=== PATIENT | female | born 1955 | race Caucasian/White ===

== ENCOUNTER → 2016-09-06 | Outpatient (CLI) | payer BC ==
--- NOTE | 2016-09-07 10:21 | MM ---
Reason for exam: screening (asymptomatic). Last mammogram was performed 1 year and 1 month ago. History: Patient is postmenopausal and history of other cancer. Benign mammotome biopsy removal of the right breast, August 25, 2003. Benign mammotome biopsy removal of the left breast, August 18, 2003. Took hormonal contraceptives for 3 years beginning at age 20. Physical Findings: A clinical breast exam by your physician is recommended on an annual basis and results should be correlated with mammographic findings. MG Screening Mammo w CAD Bilateral CC and MLO view(s) were taken. Prior study comparison: August 20, 2015, left breast MG work up mamm w CAD LT. August 17, 2015, bilateral MG screening mammo w CAD. The breast tissue is heterogeneously dense. This may lower the sensitivity of mammography. Benign calcifications. There is no discrete abnormality. No significant changes when compared with prior studies. ASSESSMENT: Benign, BI-RAD 2 RECOMMENDATION: Routine screening mammogram of both breasts in 1 year.
== END | disposition home or self-care (01) ==
LOC: RADMAMWWP 08:32
PROVIDERS: ATTEND Internal Medicine
DX: Z12.31 Encounter for screening mammogram for malignant neoplasm of breast (principal)

== ENCOUNTER → 2017-09-17 | Outpatient (CLI) | payer BC ==
--- NOTE | 2017-09-17 15:38 | CTL ---
EXAMINATION TYPE: CT Low Dose Lung DATE OF EXAM ORDERED: 09/17/2017 COMPARISON: None HISTORY: . Low Dose CT Lung Screening CT DLP: 66.[address] CTDI: 1.9 mGy IV CONTRAST USED: None. SCREENING VISIT: First visit COMPARISON: None. TECHNIQUE: Low dose computed tomography scan was performed through the chest at 1 millimeter thick se ctions and reconstructed images in the coronal plane at [address] DIAGNOSTIC QUALITY: Satisfactory FINDINGS: LUNG NODULES: Right lun.2mm pulmonary nodule superior segment right lower lobe image 165. No additional distinc t pulmonary nodules identified within the right or left lung at this time. LUNGS: COPD: Severity: None Fibrosis: Severity:None Lymph nodes: None Other findings: None RIGHT PLEURAL SPACE: Effusion: None Calcification: None Thickening: None Pneumothorax: None LEFT PLEURAL SPACE: Effusion: None Calcification: None Thickening: None Pneumothorax: None HEART: Heart Size: Mildly enlarged Coronary calcification: Mild Pericardial effusion: None OTHER FINDINGS: Upper abdomen: No significant abnormality Bony thorax: Degenerative changes Supraclavicular region: No significant abnormalityOther: No significant abnormalityI IMPRESSION: Probably benign category [address] CHEST RECOMMENDATION: 6 month follow-up LDCT CT LUNG RAD: LUNG RAD CATEGORY category 3
== END | disposition home or self-care (01) ==
LOC: RADCTMAIN 15:06
PROVIDERS: ATTEND Internal Medicine
DX: Z12.2 Encounter for screening for malignant neoplasm of respiratory organs (principal); Z87.891 Personal history of nicotine dependence

== ENCOUNTER → 2017-10-09 | Outpatient (CLI) | payer BC ==
--- NOTE | 2017-10-10 09:30 | MM ---
Reason for exam: screening (asymptomatic). Last mammogram was performed 1 year and 1 month ago. History: Patient is postmenopausal and history of other cancer. Benign mammotome biopsy removal of the right breast, August 25, 2003. Benign mammotome biopsy removal of the left breast, August 18, 2003. Took hormonal contraceptives for 3 years beginning at age 20. Physical Findings: A clinical breast exam by your physician is recommended on an annual basis and results should be correlated with mammographic findings. MG Screening Mammo w CAD Bilateral CC and MLO view(s) were taken. Prior study comparison: September 06, 2016, bilateral MG screening mammo w CAD. August 20, 2015, left breast MG work up mamm w CAD LT. The breast tissue is heterogeneously dense. This may lower the sensitivity of mammography. Stable benign calcifications. No significant changes when compared with prior studies. ASSESSMENT: Benign, BI-RAD 2 RECOMMENDATION: Routine screening mammogram of both breasts in 1 year.
== END | disposition home or self-care (01) ==
LOC: RADMAMWWP 08:12
PROVIDERS: ATTEND Internal Medicine
DX: Z12.31 Encounter for screening mammogram for malignant neoplasm of breast (principal)
CPT/HCPCS: 77067

== ENCOUNTER → 2018-04-02 | Outpatient (CLI) | payer BC ==
--- NOTE | 2018-04-02 09:55 | CT ---
EXAMINATION TYPE: CT chest w con DATE OF EXAM: 04/02/2018 COMPARISON: 09/17/2017 HISTORY: 62-year-old female personal history of tobacco use, Mass TECHNIQUE: Contiguous axial scanning of the chest after the administration of 100 mL of Isovue 300. Coronal/sagittal reconstructions performed. CT DLP: 182.8mGycm. Automatic exposure control utilized for a dose reduction. FINDINGS: Heart normal size without pericardial effusion. Coronary vessel calcifications are present in remarka ble for coronary artery disease. Aorta normal caliber with mild atherosclerotic arch calcifications and conventional arch vessel branc alexander anatomy. No thoracic lymphadenopathy by CT size criteria. Suggestion of mild underlying centrilobular emphysema in the upper lungs. 6 mm posterior right lower lobe pulmonary nodule, axial image 36 remain stable for 6 months. 4 mm inferior lingular pulmonary nodule stable for 6 months. Some strandy inferior lingular atelectasis or scarring is noted. No consolidation or pleural effusion . Visualized upper abdomen shows an inferior splenule. Bones: Degenerative changes at the shoulders and endplate spondylosis with multilevel degenerative di sc disease throughout. IMPRESSION: 1. 6 mm right lower lobe pulmonary nodule and 4 mm inferior lingular pulmonary nodules are stable for 6 months. This would qualify as LungRADS Category 2 (benign appearance, <1% chance of malignancy). P atient can return to annual low-dose lung cancer screening CT. 2. COPD with mild emphysema. CAD.
== END | disposition home or self-care (01) ==
LOC: RADCTMAIN 08:48
PROVIDERS: ATTEND Internal Medicine
DX: J43.9 Emphysema, unspecified (principal); R91.1 Solitary pulmonary nodule; I25.10 Atherosclerotic heart disease of native coronary artery without angina pectoris
CPT/HCPCS: 71260; Q9967

== ENCOUNTER → 2018-11-04 | Outpatient (CLI) | payer BC ==
--- NOTE | 2018-11-05 13:52 | MM ---
Reason for exam: screening (asymptomatic). Last mammogram was performed 1 year and 1 month ago. History: Patient is postmenopausal and history of other cancer. Benign mammotome biopsy removal of the right breast, August 25, 2003. Benign mammotome biopsy removal of the left breast, August 18, 2003. Took hormonal contraceptives for 3 years beginning at age 20. Physical Findings: A clinical breast exam by your physician is recommended on an annual basis and results should be correlated with mammographic findings. MG Screening Mammo w CAD Bilateral CC and MLO view(s) were taken. Prior study comparison: October 09, 2017, bilateral MG screening mammo w CAD. September 06, 2016, bilateral MG screening mammo w CAD. The breast tissue is heterogeneously dense. This may lower the sensitivity of mammography. Benign appearing bilateral calcifications. No suspicious abnormality. Right biopsy marker noted. No significant changes when compared with prior studies. ASSESSMENT: Benign, BI-RAD 2 RECOMMENDATION: Routine screening mammogram of both breasts in 1 year.
== END | disposition home or self-care (01) ==
LOC: RADMAMWWP 08:26
PROVIDERS: ATTEND Internal Medicine
DX: Z12.31 Encounter for screening mammogram for malignant neoplasm of breast (principal)
CPT/HCPCS: 77067

== ENCOUNTER → 2019-01-08 | Outpatient (CLI) | payer BC ==
--- NOTE | 2019-01-08 11:12 | US ---
EXAMINATION TYPE: US carotid duplex BILAT DATE OF EXAM: 01/08/2019 COMPARISON: Previous abnormal x-ray is unavailable for correlation at the time of performance of the exam. CLINICAL HISTORY: R93.17 ABN XRAY SPINE. Pt states abnormal xray at outside facility EXAM MEASUREMENTS: RIGHT: Peak Systolic Velocity (PSV) cm/sec ----- Right CCA: 70.3 ----- Right ICA: 89.7 ----- Right ECA: 88.6 ICA/CCA ratio: 1.3 RIGHT: End Diastole cm/sec ----- Right CCA: 18.0 ----- Right ICA: 34.7 ----- Right ECA: 19.3 LEFT: Peak Systolic Velocity (PSV) cm/sec ----- Left CCA: 88.6 ----- Left ICA: 96.5 ----- Left ECA: 105.6 ICA/CCA ratio: 1.1 LEFT: End Diastole cm/sec ----- Left CCA: 22.3 ----- Left ICA: 46.1 ----- Left ECA: 20.2 VERTEBRALS (direction of flow): Right Vertebral: Antegrade Left Vertebral: Antegrade Rhythm: Normal Grayscale, color Doppler, spectral Doppler imaging performed. Waveform analysis does not show signifi cant stenosis of the internal carotid arteries. No significant stenosis seen Incidental finding right thyroid nodule= 1.0 cm IMPRESSION: No hemodynamic significant stenosis of the proximal internal carotid arteries by Doppler criteria, an indirect measurement of carotid stenosis
== END ==
LOC: RADUSWWP 10:25
PROVIDERS: ATTEND Internal Medicine
DX: R93.89 Abnormal findings on diagnostic imaging of other specified body structures (principal)
CPT/HCPCS: 93880

== ENCOUNTER → 2019-01-15 | Outpatient (CLI) | payer BC ==
--- NOTE | 2019-01-15 15:59 | US ---
EXAMINATION TYPE: US thyroid st tissue head/neck DATE OF EXAM: 01/15/2019 COMPARISON: NONE CLINICAL HISTORY: R22.1 Swelling Mass Lump on neck. GLAND SIZE: Right Lobe: 3.9 x 1.4 x 1.1 cm Overall Parenchyma: heterogenous Left Lobe: 4.4 x 0.9 x 1.2 cm Overall Parenchyma: heterogeneous Isthmus Thickness: 0.3 cm NODULES RIGHT: # of nodules measured on right: 1. 1.1 X 0.6 x 1.0 cm hypoechoic solid nodule at the upper pole with well-defined margins. This no dule is wider than tall and shows intranodular vascularity. 2. 0.6 X 0.6 x 0.6 cm isoechoic mixed nodule at the lower pole with well-defined margins. This nodu le is taller than wide and shows intranodular vascularity. 3. 0.6 X 0.5 x 0.5 cm isoechoic solid nodule at the lower pole with well-defined margins. This nodu le is wider than tall and shows intranodular vascularity. LEFT: # of nodules measured on left: 2 1. 0.7 X 0.4 x 0.6 cm hypoechoic solid nodule at the upper pole with well-defined margins. This no dule is wider than tall and shows intranodular vascularity. 2. 0.8 X 0.6 x 0.8 cm hypoechoic solid nodule at the lower pole with well-defined margins. This nod ule is wider than tall and shows intranodular vascularity. ISTHMUS: # of nodules measured in the isthmus: 0 Bilateral neck scanned, no evidence of lymphadenopathy. IMPRESSION: Nonspecific thyroid nodularity.
== END | disposition home or self-care (01) ==
LOC: RADUSWWP 14:08
PROVIDERS: ATTEND Internal Medicine
DX: E04.2 Nontoxic multinodular goiter (principal)
CPT/HCPCS: 76536

== ENCOUNTER → 2019-09-10 | Outpatient (CLI) | payer BC ==
[2019-09-10 09:46] LABS: Basophils # (A) 0.1 k/uL (0-0.2); Basophils % (A) 1 %; Eosinophils # (A) 0.2 k/uL (0-0.7); Eosinophils % (A) 4 %; HCT 43.5 % (34.0-46.0); HGB 14.6 gm/dL (11.4-16.0); Lymphocytes # (A) 1.2 k/uL (1.0-4.8); Lymphocytes % (A) 18 %; MCH 34.6 pg (25.0-35.0); MCHC 33.5 g/dL (31.0-37.0); MCV 103.2 fL (80.0-100.0); Macrocytosis Slight; Mean Platelet Volume 7.5; Monocytes # (A) 0.3 k/uL (0-1.0); Monocytes % (A) 5 %; Neutrophils # (A) 4.5 k/uL (1.3-7.7); Neutrophils % (A) 70 %; Platelet Count 280 k/uL (150-450); RBC 4.21 m/uL (3.80-5.40); RDW 11.8 % (11.5-15.5); WBC 6.4 k/uL (3.8-10.6)
[2019-09-10 16:27] LABS: African American GFR (CKD) 108.4 (60.0-200.0); Albumin 4.6 g/dL (3.80-4.90); Albumin/Globulin Ratio 2.19 (1.60-3.17); Anion Gap 8.7 mmol/L (4.00-12.00); BUN/Creat Ratio 12.86 Ratio (12.00-20.00); Calcium 10.1 mg/dL (8.7-10.3); Carbon Dioxide 28.3 mmol/L (21.6-31.8); Chol/HDL Ratio 1.71; Globulin 2.1 g/dL (1.6-3.3); LDL Cholesterol,Calculated 66.6 mg/dL (0.0-131.0); Non-African American GFR(CKD) 93.5 (60.0-200.0); Total Bilirubin 0.9 mg/dL (0.2-1.2); Total Protein 6.7 g/dL (6.2-8.2); VLDL Calculation 10.4 mg/dL (5.00-40.00)
== END | disposition home or self-care (01) ==
LOC: LABWHC1 08:27
PROVIDERS: ATTEND Internal Medicine
DX: I10 Essential (primary) hypertension (principal); E78.2 Mixed hyperlipidemia; E55.9 Vitamin D deficiency, unspecified; E03.9 Hypothyroidism, unspecified
CPT/HCPCS: 36415; 80053; 80061; 82306; 84443; 85025

== ENCOUNTER → 2019-10-09 | Outpatient (CLI) | payer BC ==
--- NOTE | 2019-10-09 15:30 | CTL ---
EXAMINATION TYPE: CT Low Dose Lung DATE OF EXAM ORDERED: 10/09/2019 HISTORY: Long-term tobacco use. Lung cancer screening CT DLP: 60.[address] CTDI: 1.9 mGy Automated exposure control for dose reduction was used. SCREENING VISIT: First after baseline COMPARISON: Baseline study September 17, 2017 TECHNIQUE: Low dose computed tomography scan was performed through the chest at 1 mm thick sections a nd reconstructed images in the coronal plane at [address] DIAGNOSTIC QUALITY: Satisfactory FINDINGS: LUNG NODULES: Present, detailed below: Stable 6 x 5 mm right lower lobe nodule axial image 162. There is 5 x 4 mm subpleural nodule right lower lobe axial image 177 in retrospect stable LUNGS: COPD: Severity: Minimal Fibrosis: Severity: Mild to moderate bibasilar Lymph nodes: No definitive greater than 1 cm Other findings: None BILATERAL PLEURAL SPACE: Effusion: None Calcification: None Thickening: None Pneumothorax: None HEART: Heart Size: Normal Coronary calcification: Moderate Pericardial effusion: None OTHER FINDINGS: Upper abdomen: Diffuse fatty infiltration of liver Bony thorax: Scoliosis with moderate to severe multilevel spurring redemonstrated. Supraclavicular region: None Other: Persistent surgical clips lateral right breast image 15. IMPRESSION: No new or enlarging nodules. FOLLOW UP CT CHEST RECOMMENDATION: Annual low-dose lung screening CT CT LUNG RAD: Lung-Rad 2 Benign Appearance or Behavior
== END | disposition home or self-care (01) ==
LOC: RADCTMAIN 14:51
PROVIDERS: ATTEND Internal Medicine
DX: Z12.2 Encounter for screening for malignant neoplasm of respiratory organs (principal); Z87.891 Personal history of nicotine dependence

== ENCOUNTER → 2020-01-01 | Outpatient (CLI) | payer BC ==
--- NOTE | 2020-01-05 09:11 | MM ---
Reason for exam: screening (asymptomatic). Last mammogram was performed 1 year and 2 months ago. History: Patient is postmenopausal and history of other cancer. Benign mammotome biopsy removal of the right breast, August 25, 2003. Benign mammotome biopsy removal of the left breast, August 18, 2003. Took hormonal contraceptives for 3 years beginning at age 20. Physical Findings: A clinical breast exam by your physician is recommended on an annual basis and results should be correlated with mammographic findings. MG Screening Mammo w CAD Bilateral CC and MLO view(s) were taken. Prior study comparison: November 04, 2018, bilateral MG screening mammo w CAD. October 09, 2017, bilateral MG screening mammo w CAD. The breast tissue is heterogeneously dense. This may lower the sensitivity of mammography. Previous mammotome biopsy in the right breast, stable. No significant changes when compared with prior studies. ASSESSMENT: Benign, BI-RAD 2 RECOMMENDATION: Routine screening mammogram of both breasts in 1 year.
== END | disposition home or self-care (01) ==
LOC: RADMAMWWP 08:12
PROVIDERS: ATTEND Family Medicine
DX: Z12.31 Encounter for screening mammogram for malignant neoplasm of breast (principal)
CPT/HCPCS: 77067

== ENCOUNTER → 2020-10-11 | Outpatient (CLI) | payer BC ==
--- NOTE | 2020-10-11 14:10 | CTL ---
EXAMINATION TYPE: CT Low Dose Lung DATE OF EXAM ORDERED: 10/11/2020 HISTORY: 64-year-old female Personal history of tobacco use. Lung cancer screening CT DLP: 56.[address] CTDI: 1.8 mGy Automated exposure control for dose reduction was used. SCREENING VISIT: Annual exam COMPARISON: 10/09/2019 TECHNIQUE: Low dose computed tomography scan was performed through the chest with coronal and sagitta l reconstructions. CT DIAGNOSTIC QUALITY: Satisfactory FINDINGS: Heart normal size without pericardial effusion. Dense proximal LAD coronary artery calcifications are present. Mild atherosclerotic calcifications aortic arch and descending thoracic aorta. No thoracic lymphadenopathy by CT size criteria. 5 mm left mid lung pulmonary nodule, axial image 132, unchanged. 6 mm inferior lingular pulmonary nodule, axial image 205, unchanged. Couple 4 mm posterior left lower lobe pulmonary nodules, axial image 195 and 206, unchanged. 7 mm right lower lobe pulmonary nodule, axial image 173, unchanged. 5 mm subpleural peripheral right lower lobe pulmonary nodule, axial image 193, unchanged. 4 mm right upper lobe pulmonary nodule, axial image 50, unchanged. No consolidation or pleural effusion. Minimal emphysematous change. Visualized upper abdomen shows no gross abnormality. Bones: Degenerated dextro convex scoliosis centered along the lower thoracic spine. Severe multilevel degenerative disc disease and endplate change is noted. Degenerative change of both shoulders as wel l. IMPRESSION: Stable pulmonary nodules measuring up to 7 mm. COPD with minimal emphysema. LAD coronary artery calci fications. CT LUNG RAD AND CT CHEST RECOMMENDATION: Lung-Rad 2 Benign Appearance or Behavior: Continue annual sc reening with LDCT in 12 months. Also recommend smoking cessation.
== END | disposition home or self-care (01) ==
LOC: RADCTMAIN 10:35
PROVIDERS: ATTEND Internal Medicine
DX: Z12.2 Encounter for screening for malignant neoplasm of respiratory organs (principal); R91.8 Other nonspecific abnormal finding of lung field; J43.9 Emphysema, unspecified; I25.10 Atherosclerotic heart disease of native coronary artery without angina pectoris; Z87.891 Personal history of nicotine dependence
CPT/HCPCS: 71271

== ENCOUNTER → 2021-01-04 | Outpatient (CLI) | payer BC ==
--- NOTE | 2021-01-04 13:40 | MM ---
Reason for exam: screening (asymptomatic). Last mammogram was performed 1 year ago. History: Patient is postmenopausal and history of other cancer. Benign mammotome biopsy removal of the right breast, August 25, 2003. Benign mammotome biopsy removal of the left breast, August 18, 2003. Took hormonal contraceptives for 3 years beginning at age 20. Physical Findings: A clinical breast exam by your physician is recommended on an annual basis and results should be correlated with mammographic findings. MG Screening Mammo w CAD Bilateral CC and MLO view(s) were taken. Prior study comparison: January 01, 2020, bilateral MG screening mammo w CAD. November 04, 2018, bilateral MG screening mammo w CAD. October 09, 2017, bilateral MG screening mammo w CAD. The breast tissue is heterogeneously dense. This may lower the sensitivity of mammography. There are benign appearing round calcifications bilaterally. Previous mammotome biopsy in the right breast. There is no discrete abnormality. ASSESSMENT: Benign, BI-RAD 2 RECOMMENDATION: Routine screening mammogram of both breasts in 1 year.
== END | disposition home or self-care (01) ==
LOC: RADMAMWWP 09:52
PROVIDERS: ATTEND Obstetrics & Gynecology
DX: Z12.31 Encounter for screening mammogram for malignant neoplasm of breast (principal); Z78.0 Asymptomatic menopausal state; Z85.9 Personal history of malignant neoplasm, unspecified; Z79.3 Long term (current) use of hormonal contraceptives
CPT/HCPCS: 77067

== ENCOUNTER → 2021-01-07 | Outpatient (CLI) | payer BC ==
--- NOTE | 2021-01-07 08:09 | CT ---
EXAMINATION TYPE: CT brain wo con DATE OF EXAM: 01/07/2021 HISTORY: Left hand numbness CT DLP: 1115 mGycm. Automated Exposure Control for Dose Reduction was Utilized. TECHNIQUE: CT scan of the head is performed without contrast. COMPARISON: None. FINDINGS: There is no acute intracranial hemorrhage or midline shift identified. There is mild diff use ventricular and sulcal prominence consistent with diffuse age-related cerebral atrophy. There is moderate low-attenuation in the periventricular white matter consistent with chronic small vessel is chemic change in patient of this age. The globes are intact and the visualized sinuses are clear. IMPRESSION: No acute intracranial hemorrhage or midline shift. There is mild diffuse age-related ce rebral atrophy and moderate chronic small vessel ischemic change noted.
== END | disposition home or self-care (01) ==
LOC: RADCTMAIN 07:12
PROVIDERS: ATTEND Internal Medicine
DX: I67.82 Cerebral ischemia (principal)
CPT/HCPCS: 70450

== ENCOUNTER → 2021-01-21 | Outpatient (CLI) | payer BC ==
--- NOTE | 2021-01-21 10:29 | P.STRESS ---
- Stress Test Note Stress Test Results/Findings: Exam Performed: stress echo exercise Exam Date: 01/21/21 Reason for Exam: R/O CAD Height: 5 ft 4 in Weight: 60.328 kg Protocol: Dustin Stage: III Duration of Exercise: 7 min Resting Heart Rate: 89 Resting Blood Pressure: 141/84 Maximum Achieved Heart Rate: 151 Maximum Achieved Blood Pressure: 218/85 85% PMHR: 133 100% PMHR: 157 METS: 8.5 Technologist Comment: Stress Test Results/Findings: This is a 65-year-old female with history of hypertension, family history and coronary calcification being evaluated to rule out underlying ischemic heart disease. Stress data: Blood pressure at rest is 140/84 with pulse rate of 89. Baseline EKG showed sinus rhythm with normal OK interval and QRS duration. Patient walked on the Dustin protocol for 7 minutes achieving a maximum heart rate of 151 with a blood pressure of 218/85. EKGs taken during and after exercise did not reveal any significant changes from the baseline. Echo data: Baseline echo images show normal wall motion and thickening. Exercise echo images showed augmentation of wall motion and thickening in all the segments. Final impression: #1. Negative stress test #2. Negative stress echo.
--- NOTE | 2021-01-24 08:57 | EST ---
Stress Test Results/Findings: Exam Performed: stress echo exercise Exam Date: 01/21/21 Reason for Exam: R/O CAD Height: 5 ft 4 in Weight: 60.328 kg Protocol: Dustin Stage: III Duration of Exercise: 7 min Resting Heart Rate: 89 Resting Blood Pressure: 141/84 Maximum Achieved Heart Rate: 151 Maximum Achieved Blood Pressure: 218/85 85% PMHR: 133 100% PMHR: 157 METS: 8.5 Technologist Comment: Stress Test Results/Findings: This is a 65-year-old female with history of hypertension, family history and coronary calcification being evaluated to rule out underlying ischemic heart disease. Stress data: Blood pressure at rest is 140/84 with pulse rate of 89. Baseline EKG showed sinus rhythm with normal ID interval and QRS duration. Patient walked on the Dustin protocol for 7 minutes achieving a maximum heart rate of 151 with a blood pressure of 218/85. EKGs taken during and after exercise did not reveal any significant changes from the baseline. Echo data: Baseline echo images show normal wall motion and thickening. Exercise echo images showed augmentation of wall motion and thickening in all the segments. Final impression: #1. Negative stress test #2. Negative stress echo. EFRAIN
== END | disposition home or self-care (01) ==
LOC: RADNMMAIN 09:08
PROVIDERS: ATTEND Internal Medicine
DX: I10 Essential (primary) hypertension (principal)
CPT/HCPCS: 93351

== ENCOUNTER → 2021-02-01 | Outpatient (CLI) | payer BC ==
--- NOTE | 2021-02-01 16:04 | US ---
EXAMINATION TYPE: US thyroid st tissue head/neck DATE OF EXAM: 02/01/2021 COMPARISON: 01/15/2019 CLINICAL HISTORY: 65-year-old female E04.0 Thyroid Nodule. TECHNIQUE: Multiple sonographic images of the thyroid gland are obtained. FINDINGS: GLAND SIZE: Right Lobe: 4.7 x 1.4 x 1.8 cm Overall Parenchyma: heterogenous Left Lobe: 4.6 x 1.3 x 1.3 cm Overall Parenchyma: heterogeneous Isthmus Thickness: 0.3 cm NODULES RIGHT: # of nodules measured on right: 1 1. 1.4 X 0.8 x 1.3 cm, upper lateral, solid or almost completely solid, hypoechoic TR 4 nodule, whi ch is wider than tall, with smooth margins, without echogenic foci. Prior size: 1.1 x 0.6 x 1.0 cm LEFT: # of nodules measured on left: 1 1. 1.1 X 0.8 x 1.0 cm, lower lateral, solid or almost completely solid, hypoechoic TR 4 nodule, whi ch is wider than tall, with smooth margins, without echogenic foci. Prior size: 0.8 x 0.6 x 0.8 cm ISTHMUS: # of nodules measured in the isthmus: 0 Bilateral neck scanned, no evidence of lymphadenopathy. IMPRESSION: A TR4 nodule within each lobe of the thyroid gland shows slight interval increase in size now measuri ng 1.4 cm on the right and 1.1 cm on the left. Continued follow-up recommended. FNA of a TR4 nodule i f they reach 1.5 cm.
--- NOTE | 2021-02-01 16:06 | US ---
EXAMINATION TYPE: US carotid duplex BILAT DATE OF EXAM: 02/01/2021 COMPARISON: 01/08/2019 CLINICAL HISTORY: 65-year-old female I25.10 Coronary artery calcification. TECHNIQUE: Carotid duplex ultrasound examination. Indirect Doppler criteria was utilized. FINDINGS: EXAM MEASUREMENTS: RIGHT: Peak Systolic Velocity (PSV) cm/sec ----- Right CCA: 66.0 ----- Right ICA: 80.9 ----- Right ECA: 68.2 ICA/CCA ratio: 1.2 RIGHT: End Diastole cm/sec ----- Right CCA: 17.4 ----- Right ICA: 29.6 ----- Right ECA: 15.7 LEFT: Peak Systolic Velocity (PSV) cm/sec ----- Left CCA: 80.9 ----- Left ICA: 90.1 ----- Left ECA: 54.2 ICA/CCA ratio: 1.1 LEFT: End Diastole cm/sec ----- Left CCA: 26.2 ----- Left ICA: 38.7 ----- Left ECA: 12.1 VERTEBRALS (direction of flow): Right Vertebral: Antegrade Left Vertebral: Antegrade Rhythm: Normal Mild atelectatic changes at the bilateral bifurcations. IMPRESSION: No hemodynamically significant ICA stenosis on either side. Criteria for Assigning % of Stenosis / Diameter reduction (Estimation based on the indirect measurements of the internal carotid artery velocities (ICA PSV). 1. Normal (no stenosis)=ICA PSV < 125 cm/s: ratio < 2.0: ICA EDV<40 cm/s. 2. Less than 50% stenosis=ICA PSV < 125 cm/s: ratio < 2.0: ICA EDV<40 cm/s. 3. 50 to 69% stenosis=ICA PSV of 125 to 230 cm/s: ration 2.0 ? 4.0: ICA EDV 40-100 cm/s. 4. Greater than 70% stenosis to near occlusion= ICA PSV > 230 cm/s: ratio > 4.0: ICA EDV > 100 cm/s. 5. Near occlusion= ICA PSV velocities may be low or undetectable: variable ratio and ICA EDV. 6. Total occlusion=unable to detect flow.
== END | disposition home or self-care (01) ==
LOC: RADUSWWP 13:35
PROVIDERS: ATTEND Internal Medicine
DX: E04.2 Nontoxic multinodular goiter (principal); I25.10 Atherosclerotic heart disease of native coronary artery without angina pectoris
CPT/HCPCS: 76536; 93880

== ENCOUNTER 2021-03-07 12:19 | Day surgery (SDC) | payer BC ==
[2021-03-07 12:46] VITALS: TEMP 98.4
[2021-03-07 13:50] VITALS: BP 135/84; PULSE 79; RESP 16
--- NOTE | 2021-03-07 13:54 | US ---
EXAMINATION TYPE: US FNA thyroid first lesion, US FNA thyroid each add lesion DATE OF EXAM: 03/07/2021 COMPARISON: NONE HISTORY: Thyroid nodules. Maximal barrier technique was utilized. After informed consent, skin overlying the right lobe pole c ollecting thyroid nodule was localized with ultrasound and the overlying skin prepped and draped. Ult rasound was utilized using sterile technique. Lidocaine was used for local anesthesia. Five passes w ith a 25-gauge needle were made into the nodule and aspirated specimen was submitted to cytology. Us ing similar technique to hypoechoic lower pole left lobe thyroid nodule was sampled, 5 passes under u ltrasound guidance with a 25-gauge needle, specimen submitted for cytology review. Following the proc edure hemostasis achieved. No immediate complication. The patient discharged in stable condition. IMPRESSION: STATUS POST ULTRASOUND GUIDED FINE NEEDLE ASPIRATION OF THYROID NODULES bilaterally, PATH OLOGY IS PENDING. THIS PROCEDURE WAS PERFORMED BY THE UNDERSIGNED.
== END 2021-03-07 13:50 | disposition home or self-care (01) ==
LOC: RADPROMAIN 12:19
PROVIDERS: ATTEND Internal Medicine
DX: E04.2 Nontoxic multinodular goiter (principal)
CPT/HCPCS: 10005; 10006; 88173; 88305

== ENCOUNTER → 2021-11-04 | Outpatient (CLI) | payer BC ==
--- NOTE | 2021-11-04 11:01 | US ---
EXAMINATION TYPE: US thyroid st tissue head/neck DATE OF EXAM: 11/04/2021 COMPARISON: US CLINICAL HISTORY: E041 THYROID NODULE. F/U nodules GLAND SIZE: Right Lobe: 4.6 x 1.7 x 1.9 cm Overall Parenchyma: heterogenous Left Lobe: 4.3 x 1.2 x 1.4 cm Overall Parenchyma: heterogeneous Isthmus Thickness: 0.3 cm NODULES RIGHT: # of nodules measured on right: 2 1. 1.4 X 0.8 x 1.3 cm, upper, solid or almost completely solid, hypoechoic nodule, which is wider t mitchell tall, with smooth margins, without echogenic foci. Prior size: 1.4 x 0.8 x 1.3 cm 2. 0.9 X 0.7 x 0.8 cm, upper, solid or almost completely solid, isoechoic nodule, which is wider th an tall, with ill-defined margins, without echogenic foci. Prior size: 1.1 x 0.8 x 1.0 cm LEFT: # of nodules measured on left: 1 1. 1.0 X 0.6 x 0.8 cm, lower, solid or almost completely solid, hypoechoic nodule, which is wider t mitchell tall, with smooth margins, without echogenic foci. Prior size: 1.1 x 0.8 x 1.0 cm ISTHMUS: # of nodules measured in the isthmus: 0 Bilateral neck scanned, no evidence of lymphadenopathy. Stable nodules bilaterally, new sub-centimete r nodule right lobe. IMPRESSION: Essentially stable nonspecific thyroid nodularity.
--- NOTE | 2021-11-04 11:32 | CTL ---
EXAMINATION TYPE: CT Low Dose Lung DATE OF EXAM ORDERED: 11/04/2021 HISTORY: Personal history nicotine dependence. Lung cancer screening CT DLP: 55.[address] CTDI: 1.80 mGy Automated exposure control for dose reduction was used. SCREENING VISIT: Follow-up COMPARISON: CT low dose lung cancer screening 10/11/2020. TECHNIQUE: Low dose computed tomography scan was performed through the chest at 1 mm thick sections a nd reconstructed images in multiple planes at 1 mm and [address] DIAGNOSTIC QUALITY: Satisfactory FINDINGS: LUNG NODULES: Stable 6 mm inferior lingular pulmonary nodule (series 4, image 196). Left upper lobe 3 mm pulmonary nodule (series 4, image 96). Stable 4 mm posterior left lower lobe pulmonary nodule (se edward 4, image 191). Stable 7 mm right lower lobe pulmonary nodule (series 4, image 161). Stable subpl eural 5 mm peripheral right lower lobe pulmonary nodule (series 4, image 176). Stable 4 mm right uppe r lobe pulmonary nodule (series 4, image 47). Multiple tiny intrafissural nodule along the left major fissure is favored to represent intrafissural lymph node. No new or enlarging pulmonary nodules. No focal consolidation. Similar left medial lower lobe atelectasis. LUNGS: COPD: Severity: Minimal Fibrosis: Severity: None Lymph nodes: None Other findings: None RIGHT PLEURAL SPACE: Effusion: None Calcification: None Thickening: None Pneumothorax: None LEFT PLEURAL SPACE: Effusion: None Calcification: None Thickening: None Pneumothorax: None HEART: Heart Size: Normal Coronary Calcification: Moderate, LAD. Pericardial Effusion: None OTHER FINDINGS: Upper abdomen: None Bony thorax: No acute process. Degenerative dextro convex scoliosis centered along the lower thoracic spine. Severe multilevel degenerative disc disease and endplate changes noted. Degenerative changes of both shoulders. Supraclavicular region: None Other: None IMPRESSION: Stable pulmonary nodules measuring up to 7 mm. No new or enlarging pulmonary nodules. VEHICLE DISMANTLER D changes with minimal emphysema. LAD coronary artery calcifications. CT LUNG RAD AND CT CHEST RECOMMENDATION: Lung-Rad 2 Benign Appearance or Behavior: Continue annual sc reening with LDCT in 12 months.
== END | disposition home or self-care (01) ==
LOC: RADCTMAIN 09:50
PROVIDERS: ATTEND Internal Medicine
DX: Z12.2 Encounter for screening for malignant neoplasm of respiratory organs (principal); E04.2 Nontoxic multinodular goiter; R91.8 Other nonspecific abnormal finding of lung field; J44.9 Chronic obstructive pulmonary disease, unspecified; Z87.891 Personal history of nicotine dependence
CPT/HCPCS: 71271; 76536

== ENCOUNTER → 2022-01-31 | Outpatient (CLI) | payer BC ==
--- NOTE | 2022-02-01 09:58 | MM ---
Reason for Exam: Screening (asymptomatic). Last mammogram was performed 1 year(s) and 1 month(s) ago. Patient History: Menarche at age 15. First Full-Term at age 27. Postmenopausal. Hormonal Contraceptives for 3 years from age 20 until age 23. 08/25/2003, Benign Core Biopsy on the right side. 08/18/2003, Benign Core Biopsy on the left side. Risk Values: Jimena 5 year model risk: 2.7%. NCI Lifetime model risk: 10.6%. Prior Study Comparison: 11/04/2018 Bilateral Screening Mammogram, [facility]. 01/01/2020 Bilateral Screening Mammogram, [facility]. 01/04/2021 Bilateral Screening Mammogram, [facility]. Tissue Density: The breast tissue is heterogeneously dense. This may lower the sensitivity of mammography. Findings: Analyzed By CAD. There is no suspicious group of microcalcifications or new suspicious mass in either breast. Benign-appearing round calcifications bilaterally. Previous mammotome biopsy in the right breast. No significant change from prior exams. Overall Assessment: Benign, BI-RAD 2 Management: Screening Mammogram of both breasts in 1 year. A clinical breast exam by your physician is recommended on an annual basis and results should be correlated with mammographic findings. Electronically signed and approved by: Sage Rosen D.O.
--- NOTE | 2022-02-01 09:58 | MM ---
Reason for Exam: Screening (asymptomatic). Last mammogram was performed 1 year(s) and 1 month(s) ago. Patient History: Menarche at age 15. First Full-Term at age 27. Postmenopausal. Hormonal Contraceptives for 3 years from age 20 until age 23. 08/25/2003, Benign Core Biopsy on the right side. 08/18/2003, Benign Core Biopsy on the left side. Risk Values: Jimena 5 year model risk: 2.7%. NCI Lifetime model risk: 10.6%. Prior Study Comparison: 11/04/2018 Bilateral Screening Mammogram, [facility]. 01/01/2020 Bilateral Screening Mammogram, [facility]. 01/04/2021 Bilateral Screening Mammogram, [facility]. Tissue Density: The breast tissue is heterogeneously dense. This may lower the sensitivity of mammography. Findings: Analyzed By CAD. There is no suspicious group of microcalcifications or new suspicious mass in either breast. Benign-appearing round calcifications bilaterally. Previous mammotome biopsy in the right breast. No significant change from prior exams. Overall Assessment: Benign, BI-RAD 2 Management: Screening Mammogram of both breasts in 1 year. A clinical breast exam by your physician is recommended on an annual basis and results should be correlated with mammographic findings. Electronically signed and approved by: Sage Rosen D.O.
== END | disposition home or self-care (01) ==
LOC: RADMAMWWP 09:52
PROVIDERS: ATTEND Obstetrics & Gynecology
DX: Z12.31 Encounter for screening mammogram for malignant neoplasm of breast (principal); Z78.0 Asymptomatic menopausal state
CPT/HCPCS: 77067

== ENCOUNTER → 2022-03-16 | Outpatient (CLI) | payer BC ==
--- NOTE | 2022-03-16 13:14 | XR ---
EXAMINATION TYPE: AP view pelvis and 2 views left hip DATE OF EXAM: 03/16/2022 Comparison: None Clinical History: 66-year-old female M25.552 Left hip pain Findings: Atherosclerotic calcifications abdominal aorta. Mild degenerative joint space narrowing left hip. Rig ht upper larger plasty is present. The distal aspect of the femoral stem component is outside the fie ld of view. SI joints appear symmetric and intact. No acute fracture, subluxation, dislocation seen. Impression: Mild degenerative change at the left hip. Partially visualized right total hip arthroplasty. No acute osseous abnormality seen.
== END | disposition home or self-care (01) ==
LOC: RADXRMAIN 11:24
PROVIDERS: ATTEND Internal Medicine
DX: M16.12 Unilateral primary osteoarthritis, left hip (principal); Z96.641 Presence of right artificial hip joint
CPT/HCPCS: 73502

== ENCOUNTER → 2022-04-11 | Outpatient (CLI) | payer BC ==
--- NOTE | 2022-04-11 14:31 | US ---
EXAMINATION TYPE: US venous doppler duplex LE LT DATE OF EXAM: 04/11/2022 2:14 PM COMPARISON: NONE CLINICAL HISTORY: 66-year-old female R60.0 edema lower extremity. SIDE PERFORMED: Left TECHNIQUE: The lower extremity deep venous system is examined utilizing real time linear array sonog ronnie with graded compression, doppler sonography and color-flow sonography. FINDINGS: VESSELS IMAGED: Common Femoral Vein Deep Femoral Vein Greater Saphenous Vein * Femoral Vein Popliteal Vein Small Saphenous Vein * Proximal Calf Veins (* superficial vessels) Left Leg: Negative for DVT IMPRESSION: No evidence for DVT within the left lower extremity imaged from the groin to the upper calf.
== END | disposition home or self-care (01) ==
LOC: RADUSWWP 13:46
PROVIDERS: ATTEND Internal Medicine
DX: R60.0 Localized edema (principal)

== ENCOUNTER 2022-05-09 08:10 | Day surgery (SDC) | payer BC ==
[~2022-05-09 08:10] MED LIST: LACTATED RINGERS 1,000 ML IV SCH
[2022-05-09 08:50] LABS: Glucose,Whole Blood 104 mg/dL (70-110)
[2022-05-09 08:51] VITALS: TEMP 97.5
[2022-05-09] MEDS ORDERED: LIDOCAINE 2% INJ 20 MG/ML (2 ML VIAL) ONE (09:13)
[2022-05-09] MEDS ORDERED: PROPOFOL 10 MG/ML 20 ML VIAL IV ONE (09:13)
--- NOTE | 2022-05-09 09:19 | P.GSHP ---
History of Present Illness H&P Date: 05/09/22 Chief Complaint: History of colon polyps, screening 66-year-old female here today for colonoscopy. Last colonoscopy 5.5 years ago. No bowel complaints. Patient has had polyps on her last colonoscopy. Past Medical History Past Medical History: Coronary Artery Disease (CAD), COPD, GERD/Reflux, Hypertension, Osteoarthritis (OA), Thyroid Disorder Additional Past Medical History / Comment(s): PRE-CANCEROUS SKIN LESIONS. mild copd. scheduled to see wet pan mixer in 05/19/22, cataract removed History of Any Multi-Drug Resistant Organisms: None Reported Past Surgical History: No Surgical Hx Reported Additional Past Surgical History / Comment(s): COLONOSCOPY, EGD.06-15-15 ANT APPROACH TOTAL RT HIP ARTHROPLASTY, left wrist surgery for pinched nerve. Past Anesthesia/Blood Transfusion Reactions: No Reported Reaction Additional Past Anesthesia/Blood Transfusion Reaction / Comment(s): no blood transfusions Smoking Status: Former smoker - Past Family History Father Family Medical History: Cancer Additional Family Medical History / Comment(s): LUNG CANCER Mother Family Medical History: Hypertension, Osteoarthritis (OA) Medications and Allergies Home Medications Medication Instructions Recorded Confirmed Type Cholecalciferol [Vitamin D3 (25 1,000 unit PO DAILY 06/08/15 05/04/22 History Mcg = 1000 Iu)] Ascorbic Acid [Vitamin C] 1,000 mg PO DAILY 02/21/21 05/04/22 History Aspirin 81 mg PO DAILY 02/21/21 05/04/22 History Cyanocobalamin (Vitamin B-12) 1,000 mcg PO DAILY 02/21/21 05/04/22 History [Vitamin B-12] Esomeprazole Magnesium [NexIUM] 20 mg PO DAILY 02/21/21 05/04/22 History Torsemide [Demadex] 20 mg PO DAILY 05/04/22 05/09/22 History carvediloL 12.5 mg PO BID 05/04/22 05/09/22 History predniSONE 4 mg PO DAILY 05/09/22 05/09/22 History Allergies Allergy/AdvReac Type Severity Reaction Status Date / Time No Known Allergies Allergy Verified 05/09/22 08:30 Surgical - Exam Vital Signs Temp Pulse Resp BP Pulse Ox 97.5 F L 73 20 172/79 96 05/09/22 08:36 05/09/22 08:36 05/09/22 08:36 05/09/22 08:36 05/09/22 08:36 Physical exam: General: Well-developed, well-nourished HEENT: Normocephalic, sclerae nonicteric Abdomen: Nontender, nondistended Extremities: No edema Neuro: Alert and oriented Assessment and Plan (1) Colon cancer screening Narrative/Plan: Will proceed with colonoscopy at this time. Current Visit: Yes Status: Acute Code(s): Z12.11 - ENCOUNTER FOR SCREENING FOR MALIGNANT NEOPLASM OF COLON SNOMED Code(s): 570773717
--- NOTE | 2022-05-09 09:34 | P.PCN ---
Date of Procedure: 05/09/22 Procedure(s) Performed: PREOPERATIVE DIAGNOSIS: Colon cancer screening with history of polyps POSTOPERATIVE DIAGNOSIS: Normal exam PROCEDURE: Colonoscopy ANESTHESIA: MAC SURGEON: Damien Moyer M.D. SPECIMENS: None ENDOSCOPIC PROCEDURE: The patient was placed on the endoscopy table in the left decubitus position. The Olympus colonoscope was inserted into the anus and passed under direct visualization to the base of the cecum. The appendiceal orifice was visualized. From that point the scope was slowly withdrawn inspecting all surfaces carefully. There were no neoplastic inflammatory or polypoid lesions throughout the cecum, ascending, transverse, descending, sigmoid and rectum. There was no visible diverticulosis noted. Digital rectal examination was normal. The patient was taken to the recovery room in stable condition per anesthesia guidelines. RECOMMENDATIONS: Resume diet. Repeat colonoscopy 5-7 years.
[2022-05-09 09:39] VITALS: PULSE 68; RESP 16
[2022-05-09 10:08] VITALS: BP 174/82
== END 2022-05-09 10:20 | disposition home or self-care (01) ==
LOC: ORWHC2ENDO 08:10
PROVIDERS: ATTEND Surgery
DX: Z12.11 Encounter for screening for malignant neoplasm of colon (principal); Z86.010 Personal history of colon polyps; I25.10 Atherosclerotic heart disease of native coronary artery without angina pectoris; J44.9 Chronic obstructive pulmonary disease, unspecified; Z87.891 Personal history of nicotine dependence; K21.9 Gastro-esophageal reflux disease without esophagitis; I10 Essential (primary) hypertension; M19.90 Unspecified osteoarthritis, unspecified site; E07.9 Disorder of thyroid, unspecified; Z96.641 Presence of right artificial hip joint; Z98.890 Other specified postprocedural states; Z80.1 Family history of malignant neoplasm of trachea, bronchus and lung; Z82.49 Family history of ischemic heart disease and other diseases of the circulatory system; Z82.61 Family history of arthritis; Z79.82 Long term (current) use of aspirin; Z79.52 Long term (current) use of systemic steroids; Z79.899 Other long term (current) drug therapy; Z87.2 Personal history of diseases of the skin and subcutaneous tissue; Z98.41 Cataract extraction status, right eye
CPT/HCPCS: 45378; J2704; J2001

== ENCOUNTER → 2022-11-24 | Outpatient (CLI) | payer BC, MEDICARE ==
--- NOTE | 2022-11-27 00:51 | CTL ---
EXAMINATION TYPE: CT Low Dose Lung DATE OF EXAM ORDERED: 11/24/2022 HISTORY: 67-year-old female Z87.891,Z12.2. Lung cancer screening. Former smoker with 30 pack-year his tory. CT DLP: 68.[address] CTDI: 2.0 mGy Automated exposure control for dose reduction was used. SCREENING VISIT: Annual follow-up COMPARISON: 11/04/2021 TECHNIQUE: Low dose computed tomography scan was performed through the chest with coronal and sagitta l reconstructions. CT DIAGNOSTIC QUALITY: Satisfactory FINDINGS: Heart is normal size without pericardial effusion. LAD and RCA coronary artery calcifications are pre sent. Mildly ectatic ascending aorta 3.6 cm. Mild atherosclerotic arch calcifications with conventional arc h vessel branch anatomy. Mildly ectatic upper descending thoracic aorta 3.2 cm. No thoracic lymphadenopathy. Mild centrilobular emphysema. Mild diffuse bronchial wall thickening. Mild strandy atelectasis or sca rring in the lower lungs. * The 7 mm posterior right mid to lower lung pulmonary nodule remains unchanged. * 4 mm subpleural pulmonary nodule, lateral right lower lobe remains unchanged. * Focal patchy opacity medial left base is slightly increased/more confluent and could be reassessed in 6 months. * 3 mm posterior left midlung pulmonary nodule, axial image 143 is unchanged. * Tiny 3 mm pulmonary nodule left mid lung along the major fissure is unchanged. * 3 mm posterior left upper lobe pulmonary nodule, axial image 99 and is unchanged. No consolidation or pleural effusion. Visualized upper abdomen shows no gross abnormality. Bones: Dextroconvex scoliosis centered along the lower thoracic spine. Moderate to advanced multileve l degenerative disc disease especially mid to lower thoracic spine. IMPRESSION: 1. Lung RADS 3, probably benign; focal patchy opacity medial left base slightly increased. Follow-up recommended to exclude pneumonia versus possible causes of chronic airspace disease which includes ne oplastic etiologies such as lymphoma and low grade adenocarcinoma. 2. COPD with mild emphysema. 3. Dextro convex scoliosis. CT LUNG RAD AND CT CHEST RECOMMENDATION: Lung-Rad 3 Probably Benign: 6 month follow-up LDCT. S Modifier (other clinically significant findings): None
== END | disposition home or self-care (01) ==
LOC: RADCTMAIN 10:40
PROVIDERS: ATTEND Internal Medicine
DX: Z12.2 Encounter for screening for malignant neoplasm of respiratory organs (principal); J43.2 Centrilobular emphysema; F17.210 Nicotine dependence, cigarettes, uncomplicated
CPT/HCPCS: 71271

== ENCOUNTER → 2022-11-24 | Outpatient (CLI) | payer BC, MEDICARE ==
--- NOTE | 2022-11-24 11:11 | US ---
EXAMINATION TYPE: US thyroid st tissue head/neck DATE OF EXAM: 11/24/2022 COMPARISON: US's dated 02/01/2021 & 11/04/2021 CLINICAL INDICATION: Female, 67 years old with history of E04.1 NONTOXIC SINGLE THYROID NODULE; GLAND SIZE: Right Lobe: 4.2 x 1.5 x 1.2 cm Overall Parenchyma: heterogenous Left Lobe: 4.8 x 1.4 x 1.2 cm Overall Parenchyma: heterogenous Isthmus Thickness: 0.4 cm NODULES RIGHT: # of nodules measured on right: 1 1. 1.3 X 0.7 x 1.1 cm, upper mid, solid or almost completely solid, hyperechoic nodule, which is wi cynthia than tall, with smooth margins, without echogenic foci. Prior size: 1.4 x 0.8 x 1.3 cm LEFT: # of nodules measured on left: 1 1. 1.0 X 0.7 x 0.7 cm, lower lateral, solid or almost completely solid, hypoechoic nodule, which is wider than tall, with smooth margins, without echogenic foci. Prior size: 1.0 x 0.6 x 0.8 cm ISTHMUS: # of nodules measured in the isthmus: 0 Bilateral neck scanned, no evidence of lymphadenopathy. The right lobe is mildly heterogeneous and difficult to discern separate nodules. Last exam documente d a second nodule that is not appreciated on today's exam. IMPRESSION: Mildly Suspicious: FNA if ? 2.5 cm; Follow if ? 1.5 cm at 1, 3, and 5 y 2017 ACR TI-RADS LEVEL: TR3 *Highest TI-RADS level nodule reported
== END | disposition home or self-care (01) ==
LOC: RADUSWWP 10:18
PROVIDERS: ATTEND Internal Medicine
DX: E04.1 Nontoxic single thyroid nodule (principal)
CPT/HCPCS: 76536

== ENCOUNTER → 2023-03-19 | Outpatient (CLI) | payer MEDICARE, BC ==
--- NOTE | 2023-03-20 11:48 | MM ---
Reason for Exam: Screening (asymptomatic). Last mammogram was performed 1 year(s) and 2 month(s) ago. Patient History: Menarche at age 15. First Full-Term at age 27. Postmenopausal. Hormonal Contraceptives for 3 years from age 20 until age 23. 08/25/2003, Benign Core Biopsy on the right side. 08/18/2003, Benign Core Biopsy on the left side. Risk Values: Jimena 5 year model risk: 2.8%. NCI Lifetime model risk: 10.3%. Prior Study Comparison: 01/01/2020 Bilateral Screening Mammogram, [facility]. 01/04/2021 Bilateral Screening Mammogram, [facility]. 01/31/2022 Bilateral MG screening mammo w CAD, [facility]. Tissue Density: The breast tissue is heterogeneously dense. This may lower the sensitivity of mammography. Findings: Analyzed By CAD. There is no suspicious group of microcalcifications or new suspicious mass in either breast. Overall Assessment: Benign, BI-RAD 2 Management: Screening Mammogram of both breasts in 1 year. . Patient should continue monthly self-breast exams. A clinical breast exam by your physician is recommended on an annual basis. This exam should not preclude additional follow-up of suspicious palpable abnormalities. Note on Jimena scores and lifetime risk: 1. A Jimena score greater than 3% is considered moderate risk. If this is the case, consider specialist referral to assess eligibility for a risk reducing agent. 2. If overall lifetime risk for the development of breast cancer is 20% or higher, the patient may qualify for future screening with alternating mammogram and breast MRI. Electronically signed and approved by: Fede Rutledge M.D. Radiologis
== END | disposition home or self-care (01) ==
LOC: RADMAMWWP 09:50
PROVIDERS: ATTEND Internal Medicine
DX: Z12.31 Encounter for screening mammogram for malignant neoplasm of breast (principal); Z78.0 Asymptomatic menopausal state
CPT/HCPCS: 77063; 77067

== ENCOUNTER → 2023-06-25 | Outpatient (CLI) | payer MEDICARE, BC ==
--- NOTE | 2023-06-25 21:07 | CTL ---
EXAMINATION TYPE: CT Low Dose Lung DATE OF EXAM: 06/25/2023 4:26 PM CLINICAL INDICATION:Female, 67 years old with history of Z12.2 SCREENING FOR LUNG CA, R91.8 LUNG NODU LE; Former smoker, 1 ppd x 31 years. , history of tobacco use. COMPARISON: Multiple exams dating back to 10/03/2000 and 10/09/2019. TECHNIQUE: Multiple axial non-contrast scans were obtained from approximately the lung apices through the upper abdomen. Coronal and sagittal reformatted images were obtained. Low dose technique was uti lized. CT DLP: 73.0 mGycm, Automated exposure control for dose reduction was used. CT Contrast: Contrast used: None Oral contrast used: None FINDINGS: ======== Lack of intravenous contrast and low dose technique limits the evaluation of the vascular and soft ti ssue structures. LUNGS: No evidence of pulmonary fibrosis. No evidence of focal consolidation, pneumothorax or pleural effusion. Mild emphysema changes seen throughout the lungs. Nodules: RUL: None. RML: None. RLL: * 7 mm right lower lobe series 4 image 166 Stable compared to 11/04/2021. * 5 mm subpleural nodule in the lateral aspect right lower lobe series 4 image 190 measuring 5 mm. S table compared to 11/04/2021. THIERRY:r 3 mm series 4 image 119, stable LLL: * Not significantly changed left basilar medial consolidation streaky changes. * 3 mm left lower lobe nodule series 4 image 159. AIRWAY: Patent and unremarkable. HEART: Size within normal limits. MEDIASTINUM: No gross evidence of adenopathy. VASCULATURE: No aortic aneurysm. MUSCULOSKELETAL: No acute osseous abnormalities SOFT TISSUES/LYMPH NODES: Unremarkable. LOWER NECK: No significant findings. UPPER ABDOMEN: No significant findings. IMPRESSION: 1. Left lower lobe medial consolidation favored to be on the basis of atelectasis not significantly changed from 11/24/2022. 2. Stable scattered pulmonary nodules. No new or enlarging pulmonary nodules. 3. Mild emphysema. CT LUNG RAD AND CT CHEST RECOMMENDATION: Lung-Rad 2 Benign Appearance or Behavior: Continue annual sc reening with LDCT in 12 months. S Modifier (other clinically significant findings): None Recommend smoking cessation (if current smoker), or continuation of smoking cessation (if prior smoke r). Annual screening for lung cancer with low-dose computed tomography is recommended in adults ages 55 to 77 years who have a 30 pack-year smoking history and currently smoke or have quit within the pa st 15 years. Screening should be discontinued once a person has not smoked for 15 years or develops a health problem that substantially limits life expectancy or the ability or willingness to have curat maria a lung surgery. Lung rads 2021 [email or web address]
== END | disposition home or self-care (01) ==
LOC: RADCTMAIN 15:52
PROVIDERS: ATTEND Internal Medicine
DX: Z12.2 Encounter for screening for malignant neoplasm of respiratory organs (principal); J43.9 Emphysema, unspecified; J98.11 Atelectasis; R91.1 Solitary pulmonary nodule; Z87.891 Personal history of nicotine dependence
CPT/HCPCS: 71271

== ENCOUNTER → 2024-01-08 | Outpatient (CLI) | payer MEDICARE, BC ==
--- NOTE | 2024-01-09 00:36 | US ---
EXAMINATION TYPE: US thyroid st tissue head/neck DATE OF EXAM: 01/08/2024 COMPARISON: CLINICAL INDICATION: Female, 68 years old with history of E04.1 THYROID NODULE; Follow up thyroid nod ules. Not on thyroid medication GLAND SIZE: Right Lobe: 4.6 x 1.4 x 1.9 cm Overall Parenchyma: heterogeneous Left Lobe: 3.8 x 1.1 x 1.1 cm Overall Parenchyma: heterogeneous Isthmus Thickness: 0.5 cm NODULES- Bilateral thyroid lobes appear nodular in appearance RIGHT: # of nodules measured on right: 1. 1.4 X 1.3 x 1.0 cm, upper mid, solid or almost completely solid, hypoechoic nodule, which is wid er than tall, with smooth margins, echogenic foci. TR 4 Prior size: 1.3 x 0.7 x 1.1 cm 2. 0.9 X 0.8 x 0.7 cm, upper mid, solid or almost completely solid, isoechoic nodule, which is wide r than tall, with smooth margins, without echogenic foci. Prior size: 0.9 x 0.7 x 0.8 cm LEFT: # of nodules measured on left: 1 1. 0.8 X 0.7 x 0.6 cm, lower lateral, solid or almost completely solid, hypoechoic nodule, which i s wider than tall, with smooth margins, without echogenic foci. TR 4 Prior size: 1.0 x 0.7 x 0.7 cm ISTHMUS: # of nodules measured in the isthmus: 0 Bilateral neck scanned, no evidence of lymphadenopathy. IMPRESSION: 1. Moderately suspicious nodules left and right lobes thyroid. Follow-up in 1 year is recommended. 2017 ACR TI-RADS LEVEL: TR-RADS 4 - Moderately Suspicious: Follow if > 1 cm, FNA if > 1.5 cm *Highest TI-RADS level nodule reported [facility], , 01/09/2024 12:34 AM
== END | disposition home or self-care (01) ==
LOC: RADUSWWP 12:35
PROVIDERS: ATTEND Internal Medicine
DX: E04.2 Nontoxic multinodular goiter (principal)
CPT/HCPCS: 76536

== ENCOUNTER → 2024-04-17 | Outpatient (CLI) | payer MEDICARE, BC ==
--- NOTE | 2024-04-17 18:19 | MM ---
Reason for Exam: Screening (asymptomatic). Last mammogram was performed 1 year(s) and 1 month(s) ago. Patient History: Menarche at age 15. First Full-Term at age 27. Postmenopausal. Hormonal Contraceptives for 3 years from age 20 until age 23. 08/25/2003, Benign Core Biopsy on the right side. 08/18/2003, Benign Core Biopsy on the left side. Risk Values: Jimena 5 year model risk: 2.8%. NCI Lifetime model risk: 9.9%. Prior Study Comparison: 01/04/2021 Bilateral Screening Mammogram, [facility]. 01/31/2022 Bilateral MG screening mammo w CAD, [facility]. 03/19/2023 Bilateral MG 3D screening mammo w/cad, [facility]. Tissue Density: There are scattered areas of fibroglandular density. Findings: Analyzed By CAD. The pattern is symmetrical. Wire is within the right breast. Round calcifications are present bilaterally. No suspicious groups of microcalcifications, spiculated or lobular masses, architectural distortion or other secondary signs of malignancy are mammographically apparent. Overall Assessment: Benign, BI-RAD 2 Management: Screening Mammogram of both breasts in 1 year. A negative mammogram report should not preclude additional follow up of suspicious palpable abnormalities. Patient should continue monthly self breast exam. A clinical breast exam by your physician is recommended on an annual basis and results should be correlated with mammographic findings. Note on Jimena scores and lifetime risk: 1. A Jimena score greater than 3% is considered moderate risk. If this is the case, consider specialist referral to assess eligibility for a risk reducing agent. 2. If overall lifetime risk for the development of breast cancer is 20% or higher, the patient may qualify for future screening with alternating mammogram and breast MRI. [facility], , 04/17/2024 6:15 PM. Electronically signed and approved by: Sung Hernandez D.O. Radiologis
--- NOTE | 2024-04-18 18:18 | BD ---
EXAMINATION TYPE: Axial Bone Density DATE OF EXAM: 04/17/2024 CLINICAL HISTORY: 68 years old Female. ICD-10 CODE: Z78.0 ASYMPTOMATIC MENOPAUSAL , Additional Hist ory: Height: 61.75 Weight: 129.7 FRAX RISK QUESTIONS: Alcohol (3 or more units per day): yes Family History (Parent hip fracture): no Glucocorticoids (More than 3mos): no (Ex: prednisone, prednisolone, methylprednisolone, dexamethasone, and hydrocortisone). History of Fracture in Adulthood: no Secondary Osteoporosis: 1. Type 1 Diabetes: no 2. Hyperthyroidism: no 3. Menopause before 45: yes 4. Malnutrition: no 5. Chronic liver disease: no Rheumatoid Arthritis: no Current Tobacco Use: no RISK FACTORS HISTORY OF: Hip Fracture (Right/Left): no Spine Fracture: no History of Wrist Fracture: no Surgery to Spine/Hip(right/left)/Wrist (right/left): Bilateral hip replacement When: RT 2015 LT 2022 MEDICATIONS: Thyroid Medications: no Osteoporosis Medications: no EXAM MEASUREMENTS: Bone mineral densitometry was performed using the [employer] System. Bone mineral density as measured about the Lumbar spine is: ----- L1-L4(G/cm2): 1.072 T Score Values are as follows: ----- L1: -2.6 ----- L2: -1.1 ----- L3: -0.1 ----- L4: 0.0 ----- L1-L4: -0.9 Z Score Values are as follows: ----- L1: -0.8 ----- L2: 0.7 ----- L3: 1.7 ----- L4: 1.8 ----- L1-L4: 0.9 Baseline Study Bone mineral density about the L Wrist (g/cm2): 0.382 T Score values are as follows: -----Dist. R+U: -5.1 -----Prox. R+U: -3.8 -----Radius total: -4.8 Z Score values are as follows: -----Dist. R+U: -3.7 -----Prox. R+U: -2.3 -----Radius total: -3.4 Baseline Study FRAX%s: The graph provided illustrates a n/a % chance for a major osteoporotic fx and a n/a% chance f or the hips probability for fx in 10 years time. IMPRESSION: Osteoporosis (T Score less than -2.5). There is increased fracture risk and therapy is usually indicated based on age. Re-Screen 1-2 years. NOTE: T-SCORE=SD OF THE YOUNG ADULT MEAN. [facility], , 04/18/2024 6:16 PM
== END | disposition home or self-care (01) ==
LOC: RADMAMWWP 10:09
PROVIDERS: ATTEND Internal Medicine
DX: Z12.31 Encounter for screening mammogram for malignant neoplasm of breast (principal); Z78.0 Asymptomatic menopausal state; R92.323 Mammographic fibroglandular density, bilateral breasts; M81.8 Other osteoporosis without current pathological fracture
CPT/HCPCS: 77063; 77067; 77080

== ENCOUNTER → 2024-07-22 | Outpatient (CLI) | payer MEDICARE, BC ==
--- NOTE | 2024-07-22 11:34 | CTL ---
EXAMINATION TYPE: CT Low Dose Lung DATE OF EXAM ORDERED: 07/22/2024 COMPARISON: Prior low-dose lung screening CT June 25, 2023 and older studies. CLINICAL INDICATION: Female, 68 years old with history of Z12.2 LUNG CANCER SCREENING Z87.891 FORMER R91.1; PHH, HISTORY OF SMOKER, Lung cancer screening, History of Smoking/tobacco use. TECHNIQUE: Low dose computed tomography scan was performed through the chest at 1 mm thick sections a nd reconstructed images in multiple planes at 1 mm and [address] DLP: 74.[address] CTDI: 2.1 mGy Automated exposure control for dose reduction was used. CT DIAGNOSTIC QUALITY: Satisfactory FINDINGS: Nodules: A few scattered small bilateral nodules are redemonstrated. Stable 6 mm right lower lobe pul monary nodule axial image 162. Stable 5 mm peripheral right lower lobe nodule axial image 186. There is more prominent 11mm groundglass nodule left lower lobe posteriorly on axial image 185. Just superior to this there is an enlarging 5 x 4 mm left lower lobe nodule axial image 176. LUNGS: COPD: Severity: Mild to moderate Fibrosis: Severity: None Lymph nodes: Other findings: RIGHT PLEURAL SPACE: Effusion: None Calcification: None Thickening: None Pneumothorax: None LEFT PLEURAL SPACE: Effusion: None Calcification: None Thickening: None Pneumothorax: None HEART: Heart Size: Normal Coronary Calcification: Moderate Pericardial Effusion: None OTHER FINDINGS: Upper abdomen: None Bony thorax: S-shaped scoliosis is redemonstrated Supraclavicular region: None Other: None IMPRESSION: Mild to moderate emphysematous change with enlarging 5 mm left lower lobe pulmonary nodul e. Advise follow-up low-dose lung screening CT in 3 months time to reassess. CT LUNG RAD AND CT CHEST RECOMMENDATION: Lung-Rad 4A Suspicious: Follow-up 3 month LDCT or PET/CT may be used when there is a > 8 mm solid component. S Modifier (other clinically significant findings): None [facility], , 07/22/2024 11:32 AM
== END | disposition home or self-care (01) ==
LOC: RADCTMAIN 10:13
PROVIDERS: ATTEND Internal Medicine
DX: Z12.2 Encounter for screening for malignant neoplasm of respiratory organs (principal); J43.9 Emphysema, unspecified; R91.8 Other nonspecific abnormal finding of lung field
CPT/HCPCS: 71271

== ENCOUNTER → 2024-11-14 | Outpatient (CLI) | payer MEDICARE, BC ==
--- NOTE | 2024-11-14 14:50 | CTL ---
EXAMINATION TYPE: CT Low Dose Lung DATE OF EXAM: 11/14/2024 2:30 PM COMPARISON: None. SCREENING VISIT: Initial CT DIAGNOSTIC QUALITY: Satisfactory CLINICAL INDICATION: Female, 68 years old with history of R91.8, prior smoker, Lung cancer screening, History of tobacco use. TECHNIQUE: Low dose computed tomography scan was performed through the chest at 1 mm thick sections a nd reconstructed images in the coronal plane at 1 mm thick sections. Contrast used: mL of , (none if empty) Oral contrast used: (none if empty) CT DLP: 74 mGycm, Automated exposure control for dose reduction was used. CT CTDI: 2.0 mGy, Automated exposure control for dose reduction was used. FINDINGS: LUNG NODULES: Present, detailed below: 1. Punctate peripheral nodular density right lung. Series 4 image 53. 2. Faint subcentimeter groundglass opacity may be within the superior segment right lower lobe. Serie s 4 image 126. 3. There is a 0.7 cm density within the posterior lateral right lung. Series 4 image 172. Previous me asurement 0.6 cm. 4. Groundglass opacity posterior left lung measuring 1.2 cm. Series 4 image 182. Second groundglass o pacity is just inferior may be in communication measuring 1.3 cm. Series 4 image 187. Previous measur ement 1.1 cm. 5. Irregular 3.0 x 2.1 cm medial left lung base density. Additional workup with PET CT is recommended . LUNGS: COPD: Severity: None Fibrosis: Severity: None Lymph nodes: None Other findings: None RIGHT PLEURAL SPACE: Effusion: None Calcification: None Thickening: None Pneumothorax: None LEFT PLEURAL SPACE: Effusion: None Calcification: None Thickening: None Pneumothorax: None HEART: Other: Ascending thoracic aorta at the level the main pulmonary artery measures 3.6 cm. The main pul monary artery at the bifurcation measures 3.5 cm. Heart Size: Normal Coronary calcification: Moderate coronary artery calcifications present. Focal within the LAD. Pericardial effusion: None OTHER FINDINGS: Upper abdomen: Normal Bony thorax: Normal Supraclavicular region: Normal IMPRESSION: Suspicious findings may have minimal increase in size. Additional workup with PET CT is recommended. FOLLOW UP CT CHEST RECOMMENDATION: Follow up PET/CT CT LUNG RAD: Lung-Rad 4A Suspicious [facility], Workstation: [facility], 11/14/2024 2:48 PM
== END | disposition home or self-care (01) ==
LOC: RADCTMAIN 13:29
PROVIDERS: ATTEND Internal Medicine
DX: Z12.2 Encounter for screening for malignant neoplasm of respiratory organs (principal); R91.8 Other nonspecific abnormal finding of lung field; Z87.891 Personal history of nicotine dependence
CPT/HCPCS: 71271